=== PATIENT | male | born 1995 | race Two or more races ===

== ENCOUNTER 2024-10-08 11:00 | Emergency (ER) | payer OTHER ==
[~2024-10-08] VITALS: Ht 167.6 cm; Wt 100.0 kg
[2024-10-08 11:17] VITALS: TEMP 98.5
[2024-10-08] MEDS: LORazepam 2 MG TABLET PO ONE (14:37)
[2024-10-08 14:42] VITALS: BP 148/106; PULSE 116; RESP 18; O2SAT 98
== END 2024-10-08 14:51 ==
LOC: EMS 11:01
DX: Z02.89 Encounter for other administrative examinations (principal); I10 Essential (primary) hypertension
CPT/HCPCS: 99283